=== PATIENT | female | born 1970 | race Caucasian/White ===

== ENCOUNTER → 2023-05-13 16:47 | Outpatient (REF) | payer OTHER, SELFPAY | LOC: HWWDC 16:47 | PROVIDERS: ATTENDING PHYSICIAN Nurse Practitioner Adult Health; FAMILY PHYSICIAN Family Medicine | DX: Z12.31 Encounter for screening mammogram for malignant neoplasm of breast (principal) | CPT/HCPCS: 77063; 77067 ==

== ENCOUNTER → 2023-05-21 12:34 | Outpatient (REF) | payer OTHER, SELFPAY | LOC: HWRCS 12:34 | PROVIDERS: ATTENDING PHYSICIAN Family Medicine | DX: R01.1 Cardiac murmur, unspecified (principal) | CPT/HCPCS: 93306 ==